=== PATIENT | male | born 1980 | race African-American/Black ===

== ENCOUNTER 2017-10-07 10:28 | Inpatient (IN) | payer SELFPAY ==
[2017-10-07] VITALS (11 sets, daily range): BP systolic 100–164; BP diastolic 57–84
[~2017-10-07] VITALS: Ht 160 cm; Wt 61.2 kg
[2017-10-07] MEDS ORDERED: IV NORMAL SALINE 1000ML BAG 1,000 ML IV ONE (11:45)
[2017-10-07] MEDS ORDERED: KETOROLAC 30 MG/ML INJ. IV ONE (11:45)
[2017-10-07] MEDS ORDERED: diphenhydrAMINE 50 MG/ML VIAL IVP ONE (11:45)
[2017-10-07] MEDS ORDERED: IV NORMAL SALINE 1000ML BAG 1,000 ML IV SCH (12:07)
--- NOTE | 2017-10-07 12:08 | RAD ---
Indication: Headache for 6 days. Axial imaging through the brain was performed without contrast. No prior studies are available for comparison. There is a large subdural hematoma identified along the left frontal parietal convexity. The overall density of the subdural hematoma appears to be slightly less than typically seen during hyperacute phase and may be acute/subacute. This measures up to a thickness of 2.3 cm. This does exert significant mass effect with shift of the midline left to right of approximately 14 mm. This exerts mass effect on the left lateral ventricle. There is diffuse sulcal effacement on the left. Cisterns are patent. No intraparenchymal hemorrhage is seen. No definite fracture is identified. Impression: Large left cerebral convexity acute/subacute subdural hematoma with [id number] midline shift, as described. Results were called to the emergency department prior to this dictation. PQRS Compliance Statement: One or more of the following individualized dose reduction techniques were utilized for this examination: 1. Automated exposure control 2. Adjustment of the mA and/or kV according to patient size 3. Use of iterative reconstruction technique
[2017-10-07] MEDS ORDERED: MORPHINE SULFATE 2 MG/ML DISP.SYRIN. IV PRN (12:15)
[2017-10-07] MEDS ORDERED: ONDANSETRON PF 4 MG/2 ML VIAL. IV PRN (12:15)
[2017-10-07 12:28] LABS: BASO # 0.1 x10^3/uL (0.0-0.2); BASO % 1 % (0-3); EOS % 2 % (0-3); HEMATOCRIT 45.6 % (39.0-53.0); HEMOGLOBIN 15.5 g/dL (13.0-17.5); LYMPH % 23 % (24-48); MEAN CORPUSCULAR HEMOGLOBIN 32 pg (25-35); MEAN CORPUSCULAR HGB CONC 34 g/dL (31-37); MEAN CORPUSCULAR VOLUME 93 fL (79-100); MONO % 7 % (0-9); NEUT % 68 % (31-73); PLATELET COUNT 258 x10^3/uL (140-400); RED BLOOD COUNT 4.91 x10^6/uL (4.30-5.70); RED CELL DISTRIBUTION WIDTH 12.8 % (11.5-14.5); WHITE BLOOD COUNT 8.9 x10^3/uL (4.0-11.0)
[2017-10-07] MEDS ORDERED: THROMBIN TOPICAL 20,000 UNIT SPRAY.SYRN KIT TP ONE (12:30)
[2017-10-07] MEDS ORDERED: BUPIVAC MPF-EPI 0.5%-1:200000 30 ML VIAL. ONE (12:30)
[2017-10-07] MEDS ORDERED: BACITRACIN 50,000 UNIT in IV NORMAL SALINE 1000ML BAG 1,000 ML IRR ONE (12:30)
[2017-10-07] MEDS ORDERED: SURGICEL HEMOSTAT 4X8 EACH. ONE (12:30)
[2017-10-07] MEDS ORDERED: GELATIN SPONGE SIZE 100. ONE (12:30)
[2017-10-07 12:38] LABS: CALCIUM 8.7 mg/dL (8.5-10.1); CREATININE 1.1 mg/dL (0.7-1.3); GFR 91.1; POTASSIUM 4.4 mmol/L (3.5-5.1)
[2017-10-07 12:43] LABS: ALBUMIN 3.8 g/dL (3.4-5.0); TOTAL BILIRUBIN 0.3 mg/dL (0.2-1.0); TOTAL PROTEIN 7.7 g/dL (6.4-8.2)
[2017-10-07 12:45] LABS: PROTHROMBIN TIME PATIENT 12.7 SEC (11.7-14.0)
[2017-10-07] MEDS ORDERED: LIDOCAINE 2% PF Vial for OR 5 ML VIAL. ONE (12:59)
[2017-10-07] MEDS ORDERED: PROPOFOL 20 ML IV ONE (12:59)
[2017-10-07] MEDS ORDERED: REMIFENTANIL 2 MG VIAL. IV ONE (12:59)
[2017-10-07] MEDS ORDERED: ONDANSETRON PF 4 MG/2 ML VIAL. ONE (12:59)
[2017-10-07] MEDS ORDERED: MIDAZOLAM HCL/PF 2 MG/2 ML VIAL. ONE (12:59)
[2017-10-07] MEDS ORDERED: DEXAMETHASONE SOD PHOS 20 MG/5 ML VIAL. ONE (12:59)
[2017-10-07] MEDS ORDERED: MINERAL OIL/PETROLATUM,WHITE OPHTH OINT 3.5GM TUBE. ONE (12:59)
[2017-10-07] MEDS ORDERED: PROPOFOL 50 ML IV ONE (12:59)
[2017-10-07] MEDS ORDERED: ROCURONIUM 50 MG/5 ML VIAL. ONE (13:30)
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
[2017-10-07] MEDS ORDERED: GLYCOPYRROLATE 1 MG/5 ML VIAL. ONE (14:07)
[2017-10-07] MEDS ORDERED: NEOSTIGMINE METHYLSULFATE 5 MG/5 ML SYRINGE. ONE (14:38)
[2017-10-07] MEDS ORDERED: SEVOFLURANE 61 TO 120 MINUTES. IH ONE (14:38)
[2017-10-07] MEDS ORDERED: POTASSIUM CL 20MEQ D5-0.45NACL 1,000 ML IV SCH (14:58)
[2017-10-07] MEDS ORDERED: diphenhydrAMINE HCL 25 MG CAPSULE PO PRN (15:00)
[2017-10-07] MEDS ORDERED: MAG HYDROX/ALUMINUM HYD/SIMETH 30 ML ORAL.SUSP PO PRN (15:00)
[2017-10-07] MEDS ORDERED: CALCIUM CARBONATE 500 MG TAB.CHEW PO PRN (15:00)
[2017-10-07] MEDS ORDERED: HYDROcodone/APAP 5/325MG 1 TAB TABLET PO PRN ×2 (15:00)
[2017-10-07] MEDS ORDERED: DEXTROSE 50% 25 GM / 50ML DISP.SYRIN. IV PRN (15:00)
[2017-10-07] MEDS ORDERED: diphenhydrAMINE 50 MG/ML VIAL IV PRN (15:00)
[2017-10-07] MEDS ORDERED: MAGNESIUM HYDROXIDE 2,400 MG/30 ML ORAL.SUSP. PO PRN (15:00)
[2017-10-07] MEDS ORDERED: 0.9 % SODIUM CHLORIDE 10 ML DISP.SYRIN. IV PRN (15:00)
--- NOTE | 2017-10-07 15:48 | PHYS DOC ---
Past Medical History Past Medical History: No Pertinent History Past Surgical History: No Surgical History Alcohol Use: Heavy Additional Information: AT LEAST 6 BEERS A DAY Drug Use: None Adult General Chief Complaint Chief Complaint: HEADACHE HPI HPI Patient is a 37 year old male who presents with a headache 4-5 days that is persisting. The patient denies any history of migraines, cluster headaches or sinus tenderness. He states that the headache is around his temples stretching across his forehead. He has never had a headache this one. States that he did have some nausea this morning but denies fevers, neck pain or diarrhea. Review of Systems Review of Systems Constitutional: Denies fever or chills [] Eyes: Denies change in visual acuity, redness, or eye pain [] HENT: Denies nasal congestion or sore throat [] Respiratory: Denies cough or shortness of breath [] Cardiovascular: No additional information not addressed in HPI [] GI: See history of present illness Musculoskeletal: Denies back pain or joint pain [] Integument: Denies rash or skin lesions [] Neurologic: He history of present illness Endocrine: Denies polyuria or polydipsia [] All other systems were reviewed and found to be within normal limits, except as documented in this note. Current Medications Current Medications Current Medications Medications (Trade) Dose Ordered Sig/Devorah Start Time Stop Time Status Last Admin Dose Admin Diphenhydramine HCl (Benadryl) 50 mg 1X ONCE 10/07/17 11:45 10/07/17 12:02 DC Ketorolac Tromethamine (Toradol) 30 mg 1X ONCE 10/07/17 11:45 10/07/17 12:02 DC Sodium Chloride 1,000 ml @ 1,000 mls/hr 1X ONCE 10/07/17 11:45 10/07/17 12:44 DC 10/07/17 12:32 1,000 MLS/HR Physical Exam Physical Exam Constitutional: Well developed, well nourished, no acute distress, non-toxic appearance. [] HENT: Normocephalic, atraumatic, bilateral external ears normal, oropharynx is erythematous, no oral exudates, nose normal. [] Eyes: PERRLA, EOMI, conjunctiva normal, no discharge. [] Neck: Normal range of motion, no tenderness, supple, no stridor. [] Cardiovascular:Heart rate regular rhythm, no murmur [] Lungs & Thorax: Bilateral breath sounds clear to auscultation [] Abdomen: Bowel sounds normal, soft, no tenderness, no masses, no pulsatile masses. [] Skin: Warm, dry, no erythema, no rash. [] Back: No tenderness, no CVA tenderness. [] Extremities: No tenderness, no cyanosis, no clubbing, ROM intact, no edema. [] Neurologic: Alert and oriented X 3, normal motor function, normal sensory function, no focal deficits noted, cranial nerves II through XII are grossly intact. [] Psychologic: Affect normal, judgement normal, mood normal. [] Current Patient Data Vital Signs Vital Signs Date Time Temp Pulse Resp B/P (MAP) Pulse Ox O2 Delivery O2 Flow Rate FiO2 10/07/17 12:00 56 18 98 10/07/17 10:42 98.4 134/91 (105) Room Air 98.4 EKG EKG [] Radiology/Procedures Radiology/Procedures PATIENT: SEVERIANO VAUGHN ACCOUNT: [id number] : 1980 LOCATION: ER AGE: 37 SEX: M EXAM STATUS: REG ER ORD. PHYSICIAN: FRANCIS GARCIA APRN REASON: headache x 5 days PROCEDURE: CT HEAD WO CONTRAST Indication: Headache for 6 days. Axial imaging through the brain was performed without contrast. No prior studies are available for comparison. There is a large subdural hematoma identified along the left frontal parietal convexity. The overall density of the subdural hematoma appears to be slightly less than typically seen during hyperacute phase and may be acute/subacute. This measures up to a thickness of 2.3 cm. This does exert significant mass effect with shift of the midline left to right of approximately 14 mm. This exerts mass effect on the left lateral ventricle. There is diffuse sulcal effacement on the left. Cisterns are patent. No intraparenchymal hemorrhage is seen. No definite fracture is identified. Impression: Large left cerebral convexity acute/subacute subdural hematoma with [id number] midline shift, as described. Results were called to the emergency department prior to this dictation. PQRS Compliance Statement: One or more of the following individualized dose reduction techniques were utilized for this examination: 1. Automated exposure control 2. Adjustment of the mA and/or kV according to patient size 3. Use of iterative reconstruction technique DICTATED and SIGNED BY: TAMIA BLACKBURN MD DATE: 10/07/17 6614 CC: FRANCIS GARCIA APRN; WENDY DIAZ MD; NO PCP ~ Course & Med Decision Making Course & Med Decision Making Pertinent Labs and Imaging studies reviewed. (See chart for details) []1. Subdermal hematoma with midline shift Dr. Samuel was consulted in the care of this patient for surgical management of this large subdural hematoma. Dr. Pride will be the admitting provider. Dr. Diaz assisted in the evaluation and treatment of this patient in the emergency department. The patient was directly taken to surgery from the emergency department today. Dragon Disclaimer Dragon Disclaimer This electronic medical record was generated, in whole or in part, using a voice recognition dictation system. Departure Departure Referrals: NO PCP (PCP) FRANCIS GARCIA APRN Oct 07, 2017 15:48
[2017-10-07] MEDS: DOCUSATE SODIUM 100 MG CAPSULE. PO SCH (21:59)
[2017-10-07] MEDS: ceFAZolin SODIUM IV Push 1 GM VIAL. IVP SCH (21:59)
[2017-10-07] MEDS ORDERED: ceFAZolin SODIUM 1 GM in IV DEXTROSE 5% 50 ML IV SCH (22:00)
[2017-10-08] VITALS (16 sets, daily range): BP systolic 95–132; BP diastolic 50–85
[2017-10-08] MEDS: ceFAZolin SODIUM IV Push 1 GM VIAL. IVP SCH ×2 (05:58→14:00)
[2017-10-08 06:44] LABS: BASO % 0 % (0-3); EOS % 0 % (0-3); HEMOGLOBIN 14.6 g/dL (13.0-17.5); LYMPH # 1.7 x10^3/uL (1.0-4.8); LYMPH % 11 % (24-48); MEAN CORPUSCULAR HEMOGLOBIN 31 pg (25-35); MEAN CORPUSCULAR HGB CONC 34 g/dL (31-37); MEAN CORPUSCULAR VOLUME 92 fL (79-100); MONO % 6 % (0-9); NEUT % 82 % (31-73); PLATELET COUNT 280 x10^3/uL (140-400); RED BLOOD COUNT 4.67 x10^6/uL (4.30-5.70); RED CELL DISTRIBUTION WIDTH 12.9 % (11.5-14.5); WHITE BLOOD COUNT 14.7 x10^3/uL (4.0-11.0)
[2017-10-08 06:47] LABS: ALBUMIN 3.5 g/dL (3.4-5.0); CALCIUM 8.7 mg/dL (8.5-10.1); CREATININE 1.3 mg/dL (0.7-1.3); GFR 75.2; POTASSIUM 4.1 mmol/L (3.5-5.1); TOTAL BILIRUBIN 0.5 mg/dL (0.2-1.0); TOTAL PROTEIN 6.9 g/dL (6.4-8.2)
[2017-10-08] MEDS: DOCUSATE SODIUM 100 MG CAPSULE. PO SCH ×2 (09:00→20:33)
--- NOTE | 2017-10-08 12:31 | PDOC ---
PROGRESS NOTES Chief Complaint Chief Complaint large subdural hematoma, s/p possible head trauma now s/p evacuation surgery. History of Present Illness History of Present Illness feels well, has to lie flat, drain removed this AM neurosurg following, transfer to the floor today Vitals Vitals Vital Signs Date Time Temp Pulse Resp B/P (MAP) Pulse Ox O2 Delivery O2 Flow Rate FiO2 10/08/17 11:00 65 101/76 (84) 97 Room Air 10/08/17 09:00 98.5 98.5 10/08/17 06:00 20 10/08/17 04:00 10.0 Physical Exam General: Alert, Oriented X3, Cooperative, No acute distress Heart: Regular rate, Normal S2, No murmurs Lungs: Wheezing Skin: No rashes Labs LABS Laboratory Tests Test 10/08/17 05:00 White Blood Count 14.7 x10^3/uL (4.0-11.0) Red Blood Count 4.67 x10^6/uL (4.30-5.70) Hemoglobin 14.6 g/dL (13.0-17.5) Hematocrit 43.0 % (39.0-53.0) Mean Corpuscular Volume 92 fL (79-100) Mean Corpuscular Hemoglobin 31 pg (25-35) Mean Corpuscular Hemoglobin Concent 34 g/dL (31-37) Red Cell Distribution Width 12.9 % (11.5-14.5) Platelet Count 280 x10^3/uL (140-400) Neutrophils (%) (Auto) 82 % (31-73) Lymphocytes (%) (Auto) 11 % (24-48) Monocytes (%) (Auto) 6 % (0-9) Eosinophils (%) (Auto) 0 % (0-3) Basophils (%) (Auto) 0 % (0-3) Neutrophils # (Auto) 12.1 x10^3uL (1.8-7.7) Lymphocytes # (Auto) 1.7 x10^3/uL (1.0-4.8) Monocytes # (Auto) 0.9 x10^3/uL (0.0-1.1) Eosinophils # (Auto) 0.0 x10^3/uL (0.0-0.7) Basophils # (Auto) 0.0 x10^3/uL (0.0-0.2) Sodium Level 141 mmol/L (136-145) Potassium Level 4.1 mmol/L (3.5-5.1) Chloride Level 103 mmol/L (98-107) Carbon Dioxide Level 29 mmol/L (21-32) Anion Gap 9 (6-14) Blood Urea Nitrogen 12 mg/dL (8-26) Creatinine 1.3 mg/dL (0.7-1.3) Estimated GFR (Cockcroft-Gault) 75.2 BUN/Creatinine Ratio 9 (6-20) Glucose Level 112 mg/dL (70-99) Calcium Level 8.7 mg/dL (8.5-10.1) Total Bilirubin 0.5 mg/dL (0.2-1.0) Aspartate Amino Transf (AST/SGOT) 17 U/L (15-37) Alanine Aminotransferase (ALT/SGPT) 22 U/L (16-63) Alkaline Phosphatase 51 U/L (46-116) Total Protein 6.9 g/dL (6.4-8.2) Albumin 3.5 g/dL (3.4-5.0) Albumin/Globulin Ratio 1.0 (1.0-1.7) Review of Systems Review of Systems no n.v.d' Assessment and Plan Assessmemt and Plan Problems Medical Problems: (1) Subdural hematoma Status: Acute Problems: Comment Review of Relevant I have reviewed the following items eliseo (where applicable) has been applied. Labs Laboratory Tests Test 10/07/17 12:10 10/07/17 12:15 10/08/17 05:00 White Blood Count 8.9 x10^3/uL (4.0-11.0) 14.7 x10^3/uL (4.0-11.0) Red Blood Count 4.91 x10^6/uL (4.30-5.70) 4.67 x10^6/uL (4.30-5.70) Hemoglobin 15.5 g/dL (13.0-17.5) 14.6 g/dL (13.0-17.5) Hematocrit 45.6 % (39.0-53.0) 43.0 % (39.0-53.0) Mean Corpuscular Volume 93 fL (79-100) 92 fL (79-100) Mean Corpuscular Hemoglobin 32 pg (25-35) 31 pg (25-35) Mean Corpuscular Hemoglobin Concent 34 g/dL (31-37) 34 g/dL (31-37) Red Cell Distribution Width 12.8 % (11.5-14.5) 12.9 % (11.5-14.5) Platelet Count 258 x10^3/uL (140-400) 280 x10^3/uL (140-400) Neutrophils (%) (Auto) 68 % (31-73) 82 % (31-73) Lymphocytes (%) (Auto) 23 % (24-48) 11 % (24-48) Monocytes (%) (Auto) 7 % (0-9) 6 % (0-9) Eosinophils (%) (Auto) 2 % (0-3) 0 % (0-3) Basophils (%) (Auto) 1 % (0-3) 0 % (0-3) Neutrophils # (Auto) 6.0 x10^3uL (1.8-7.7) 12.1 x10^3uL (1.8-7.7) Lymphocytes # (Auto) 2.0 x10^3/uL (1.0-4.8) 1.7 x10^3/uL (1.0-4.8) Monocytes # (Auto) 0.6 x10^3/uL (0.0-1.1) 0.9 x10^3/uL (0.0-1.1) Eosinophils # (Auto) 0.2 x10^3/uL (0.0-0.7) 0.0 x10^3/uL (0.0-0.7) Basophils # (Auto) 0.1 x10^3/uL (0.0-0.2) 0.0 x10^3/uL (0.0-0.2) Sodium Level 141 mmol/L (136-145) 141 mmol/L (136-145) Potassium Level 4.4 mmol/L (3.5-5.1) 4.1 mmol/L (3.5-5.1) Chloride Level 104 mmol/L (98-107) 103 mmol/L (98-107) Carbon Dioxide Level 31 mmol/L (21-32) 29 mmol/L (21-32) Anion Gap 6 (6-14) 9 (6-14) Blood Urea Nitrogen 11 mg/dL (8-26) 12 mg/dL (8-26) Creatinine 1.1 mg/dL (0.7-1.3) 1.3 mg/dL (0.7-1.3) Estimated GFR (Cockcroft-Gault) 91.1 75.2 BUN/Creatinine Ratio 10 (6-20) 9 (6-20) Glucose Level 95 mg/dL (70-99) 112 mg/dL (70-99) Calcium Level 8.7 mg/dL (8.5-10.1) 8.7 mg/dL (8.5-10.1) Total Bilirubin 0.3 mg/dL (0.2-1.0) 0.5 mg/dL (0.2-1.0) Aspartate Amino Transf (AST/SGOT) 17 U/L (15-37) 17 U/L (15-37) Alanine Aminotransferase (ALT/SGPT) 25 U/L (16-63) 22 U/L (16-63) Alkaline Phosphatase 59 U/L (46-116) 51 U/L (46-116) Total Protein 7.7 g/dL (6.4-8.2) 6.9 g/dL (6.4-8.2) Albumin 3.8 g/dL (3.4-5.0) 3.5 g/dL (3.4-5.0) Albumin/Globulin Ratio 1.0 (1.0-1.7) 1.0 (1.0-1.7) Prothrombin Time 12.7 SEC (11.7-14.0) Prothromb Time International Ratio 1.0 (0.8-1.1) Activated Partial Thromboplast Time 23 SEC (24-38) Laboratory Tests Test 10/08/17 05:00 White Blood Count 14.7 x10^3/uL (4.0-11.0) Red Blood Count 4.67 x10^6/uL (4.30-5.70) Hemoglobin 14.6 g/dL (13.0-17.5) Hematocrit 43.0 % (39.0-53.0) Mean Corpuscular Volume 92 fL (79-100) Mean Corpuscular Hemoglobin 31 pg (25-35) Mean Corpuscular Hemoglobin Concent 34 g/dL (31-37) Red Cell Distribution Width 12.9 % (11.5-14.5) Platelet Count 280 x10^3/uL (140-400) Neutrophils (%) (Auto) 82 % (31-73) Lymphocytes (%) (Auto) 11 % (24-48) Monocytes (%) (Auto) 6 % (0-9) Eosinophils (%) (Auto) 0 % (0-3) Basophils (%) (Auto) 0 % (0-3) Neutrophils # (Auto) 12.1 x10^3uL (1.8-7.7) Lymphocytes # (Auto) 1.7 x10^3/uL (1.0-4.8) Monocytes # (Auto) 0.9 x10^3/uL (0.0-1.1) Eosinophils # (Auto) 0.0 x10^3/uL (0.0-0.7) Basophils # (Auto) 0.0 x10^3/uL (0.0-0.2) Sodium Level 141 mmol/L (136-145) Potassium Level 4.1 mmol/L (3.5-5.1) Chloride Level 103 mmol/L (98-107) Carbon Dioxide Level 29 mmol/L (21-32) Anion Gap 9 (6-14) Blood Urea Nitrogen 12 mg/dL (8-26) Creatinine 1.3 mg/dL (0.7-1.3) Estimated GFR (Cockcroft-Gault) 75.2 BUN/Creatinine Ratio 9 (6-20) Glucose Level 112 mg/dL (70-99) Calcium Level 8.7 mg/dL (8.5-10.1) Total Bilirubin 0.5 mg/dL (0.2-1.0) Aspartate Amino Transf (AST/SGOT) 17 U/L (15-37) Alanine Aminotransferase (ALT/SGPT) 22 U/L (16-63) Alkaline Phosphatase 51 U/L (46-116) Total Protein 6.9 g/dL (6.4-8.2) Albumin 3.5 g/dL (3.4-5.0) Albumin/Globulin Ratio 1.0 (1.0-1.7) Medications Current Medications Sodium Chloride 1,000 ml @ 1,000 mls/hr 1X ONCE IV Last administered on 10/07 12:32; Start 10/07/17 at 11:45; Stop 10/07/17 at 12:44; Status DC Ketorolac Tromethamine (Toradol) 30 mg 1X ONCE IV ; Start 10/07/17 at 11:45; Stop 10/07/17 at 12:02; Status DC Diphenhydramine HCl (Benadryl) 50 mg 1X ONCE IVP ; Start 10/07/17 at 11:45; Stop 10/07/17 at 12:02; Status DC Ondansetron HCl (Zofran) 4 mg PRN Q8HRS PRN IV NAUSEA/VOMITING; Start at 12:15; Stop 10/08/17 at 12:14; Status DC Morphine Sulfate 2 mg PRN Q2HR PRN IV PAIN; Start 10/07/17 at 12:15; Stop at 12:14; Status DC Sodium Chloride 1,000 ml @ 100 mls/hr Q10H IV Last administered on 10/07/17 12:07; Start 10/07/17 at 12:07; Stop 10/07/17 at 20:06; Status DC Bacitracin 67635 unit/Sodium Chloride 1,000 ml @ 1,000 mls/hr 1X PERIOP ONCE IRR Last administered on 10/07/17 13:55; Start 10/07/17 at 12:30; Stop at 13:29; Status DC Gelatin (Gelfoam Size 100) 1 each STK-MED ONCE .ROUTE Last administered on 13:54; Start 10/07/17 at 12:30; Stop 10/07/17 at 12:31; Status DC Bupivacaine HCl/ Epinephrine Bitart (Sensorcain-Mpf Epi 0.5%-1:[id number]) 30 ml STK -MED ONCE .ROUTE ; Start 10/07/17 at 12:30; Stop 10/07/17 at 12:31; Status DC Cellulose 1 each STK-MED ONCE .ROUTE ; Start 10/07/17 at 12:30; Stop 10/07/17 at 12:31; Status DC Thrombin 20,000 unit STK-MED ONCE TP Last administered on 10/07/17 13:54; Start 10/07/17 at 12:30; Stop 10/07/17 at 12:31; Status DC Dexamethasone Sodium Phosphate (Decadron) 20 mg STK-MED ONCE .ROUTE ; Start at 12:59; Stop 10/07/17 at 13:00; Status DC Lidocaine HCl (Lidocaine Pf 2% Vial) 5 ml STK-MED ONCE .ROUTE ; Start 10/07/17 at 12:59; Stop 10/07/17 at 13:00; Status DC Ondansetron HCl (Zofran) 4 mg STK-MED ONCE .ROUTE ; Start 10/07/17 at 12:59; Stop 10/07/17 at 13:00; Status DC Propofol 20 ml @ As Directed STK-MED ONCE IV ; Start 10/07/17 at 12:59; Stop 10/07/17 at 13:00; Status DC Propofol 50 ml @ As Directed STK-MED ONCE IV ; Start 10/07/17 at 12:59; Stop 10/07/17 at 13:00; Status DC Midazolam HCl (Versed) 2 mg STK-MED ONCE .ROUTE ; Start 10/07/17 at 12:59; Stop 10/07/17 at 13:00; Status DC Remifentanil HCl (Ultiva) 2 mg STK-MED ONCE IV ; Start 10/07/17 at 12:59; Stop 10/07/17 at 13:00; Status DC Multi-Ingred Cream/Lotion/Oil/ Oint (Artificial Tears Eye Ointment) 7 donna STK- MED ONCE .ROUTE ; Start 10/07/17 at 12:59; Stop 10/07/17 at 13:00; Status DC Cefazolin Sodium 0 ml @ As Directed STK-MED ONCE IV ; Start 10/07/17 at 13:19; Stop 10/07/17 at 13:20; Status DC Cefazolin Sodium/ Dextrose 50 ml @ 100 mls/hr 1X PREOP PRN IV PRIOR TO PROCEDURE Last administered on 10/07/17t 13:58; Start 10/07/17 at 13:20; Stop 10/08/17 at 13:19 Rocuronium Rarden (Zemuron) 50 mg STK-MED ONCE .ROUTE ; Start 10/07/17 at 13: 30; Stop 10/07/17 at 13:31; Status DC Glycopyrrolate (Robinul) 1 mg STK-MED ONCE .ROUTE ; Start 10/07/17 at 14:07; Stop 10/07/17 at 14:08; Status DC Sevoflurane (Ultane) 60 ml STK-MED ONCE IH ; Start 10/07/17 at 14:38; Stop at 14:39; Status DC Neostigmine Methylsulfate 5 mg STK-MED ONCE .ROUTE ; Start 10/07/17 at 14:38; Stop 10/07/17 at 14:39; Status DC Al Hydroxide/Mg Hydroxide (Mylanta Plus Xs) 30 ml PRN Q3HRS PRN PO HEARTBURN / GAS; Start 10/07/17 at 15:00 Calcium Carbonate/ Glycine (Tums) 500 mg PRN Q3HRS PRN PO INDIGESTION; Start 10/07/17 at 15:00 Diphenhydramine HCl (Benadryl) 25 mg PRN Q6HRS PRN PO ITCHING; Start 10/07/17 at 15:00 Diphenhydramine HCl (Benadryl) 25 mg PRN Q6HRS PRN IV ITCHING; Start 10/07/17 at 15:00 Sodium Chloride (Normal Saline Flush) 3 ml QSHIFT PRN IV AFTER MEDS AND BLOOD DRAWS; Start 10/07/17 at 15:00 Potassium Chloride/Dextrose/ Sod Cl 1,000 ml @ 75 mls/hr [id number] IV ; Start at 14:58; Stop 10/07/17 at 18:37; Status DC Dextrose (Dextrose 50%-Water Syringe) 12.5 gm PRN Q15MIN PRN IV SEE COMMENTS; Start 10/07/17 at 15:00 Acetaminophen/ Hydrocodone Bitart (Lortab 5/325) 1 tab PRN Q4HRS PRN PO MILD PAIN Last administered on 10/07/17t 21:59; Start 10/07/17 at 15:00 Acetaminophen/ Hydrocodone Bitart (Lortab 5/325) 2 tab PRN Q4HRS PRN PO MODERATE PAIN, SEVERE PAIN; Start 10/07/17 at 15:00 Docusate Sodium (Colace) 100 mg BID PO Last administered on 10/07/17t 21:59; Start 10/07/17 at 21:00 Magnesium Hydroxide (Milk Of Magnesia) 2,400 mg PRN Q12HR PRN PO CONSTIPATION; Start 10/07/17 at 15:00 Cefazolin Sodium 1 gm/Dextrose 50 ml @ 100 mls/hr Q8H IV ; Start 10/07/17 at 22:00; Stop 10/07/17 at 22:00; Status DC Cefazolin Sodium (Ancef) 1 gm Q8HRS IVP Last administered on 10/08/17t 05:58; Start 10/07/17 at 22:00; Stop 10/08/17 at 14:01 Active Scripts Active Reported No Known Medications Prior To Admisstion (Info) Each 1 Each Vitals/I & O Vital Sign - Last 24 Hours 10/07/17 10/07/17 10/07/17 10/07/17 12:30 12:46 13:10 15:20 Temp 98 97.8 98.0 97.8 Pulse 63 60 64 56 Resp 18 20 20 18 B/P (MAP) 122/90 118/76 (90) Pulse Ox 100 99 98 100 O2 Delivery Room Air Simple Mask O2 Flow Rate 6.0 10/07/17 10/07/17 10/07/17 10/07/17 15:21 15:36 15:51 16:00 Temp 97.8 97.2 97.8 97.2 Pulse 55 46 48 Resp 22 22 B/P (MAP) 157/84 152/80 141/76 124/68 (86) Pulse Ox 100 100 100 O2 Delivery Simple Mask Simple Mask Room Air O2 Flow Rate 10 10 10/07/17 10/07/17 10/07/17 10/07/17 16:30 16:59 16:59 18:00 Temp 97.8 97.8 97.8 97.8 Pulse 48 48 50 Resp 18 18 18 B/P (MAP) 155/76 (102) 150/76 (100) 121/77 (92) 129/75 (93) Pulse Ox 100 100 99 O2 Delivery Room Air Room Air Room Air 10/07/17 10/07/17 10/07/17 10/07/17 18:00 19:00 20:00 20:10 Pulse 64 62 Resp 18 18 B/P (MAP) 150/80 (103) 156/82 (106) 140/76 (97) Pulse Ox 99 100 O2 Delivery Room Air Room Air Room Air O2 Flow Rate 10.0 10/07/17 10/07/17 10/07/17 10/07/17 20:15 21:00 21:00 21:59 Pulse 50 56 Resp 22 B/P (MAP) 154/78 (103) 133/59 (83) 164/84 (110) Pulse Ox 99 100 O2 Delivery Room Air Room Air O2 Flow Rate 10.0 10/07/17 10/07/17 10/07/17 10/07/17 22:00 22:00 23:09 23:10 Pulse 70 55 Resp 22 20 22 B/P (MAP) 162/78 (106) 100/79 (86) 103/57 (72) Pulse Ox 100 100 97 O2 Delivery Room Air Room Air 10/07/17 10/08/17 10/08/17 10/08/17 23:10 00:01 00:01 00:01 Pulse 63 55 Resp 20 B/P (MAP) 134/67 (89) 103/64 (77) 131/61 (84) Pulse Ox 96 O2 Delivery Room Air Room Air O2 Flow Rate 10.0 10/08/17 10/08/17 10/08/17 10/08/17 01:01 02:03 02:04 03:08 Temp 98.3 98.3 Pulse 61 61 60 Resp 20 20 B/P (MAP) 129/61 (83) 100/50 (67) 95/55 (68) 102/61 (75) Pulse Ox 96 95 O2 Delivery Room Air Room Air 10/08/17 10/08/17 10/08/17 10/08/17 03:10 04:00 04:00 04:00 Pulse 54 Resp 20 B/P (MAP) 97/63 (74) 132/64 (86) 109/64 (79) Pulse Ox 96 O2 Delivery Room Air O2 Flow Rate 10.0 10/08/17 10/08/17 10/08/17 10/08/17 06:00 07:00 08:00 08:00 Temp 98.5 98.5 Pulse 80 57 96 Resp 20 B/P (MAP) 100/67 (78) 100/59 (73) 111/67 (82) Pulse Ox 98 96 97 O2 Delivery Room Air Room Air Room Air Room Air 10/08/17 10/08/1710/08/17 09:00 10:00 11:00 Temp 98.5 98.5 Pulse 71 60 65 B/P (MAP) 105/65 (78) 114/70 (85) 101/76 (84) Pulse Ox 98 100 97 O2 Delivery Room Air Room Air Room Air Intake and Output 10/07/17 10/07/17 10/08/17 15:00 23:00 07:00 Intake Total 50 ml 1620 ml 600 ml Output Total 1015 ml 680 ml Balance 50 ml 605 ml -80 ml GAIL TRACEY MD Oct 08, 2017 12:31
--- NOTE | 2017-10-08 16:39 | PDOC ---
PROGRESS NOTES Subjective Subjective Patient seen at 1130 POD #1 Awake, alert denies headache Objective Objective Vital Signs Date Time Temp Pulse Resp B/P (MAP) Pulse Ox O2 Delivery O2 Flow Rate FiO2 10/08/17 11:00 65 101/76 (84) 97 Room Air 10/08/17 09:00 98.5 98.5 10/08/17 06:00 20 10/08/17 04:00 10.0 Intake and Output 10/08/17 07:00 Intake Total 2270 ml Output Total 1695 ml Balance 575 ml Intake Oral 1220 ml IV Total 1050 ml Output Urine Total 1600 ml Drainage Total 70 ml Estimated Blood Loss 25 ml Physical Exam General: Alert, Oriented X3, Cooperative, No acute distress MUSCULOSKELETAL: Other ([place]) Neuro: Strength at 5/5 X4 ext Skin: Other (Drain removed without diffuculty, dressing intact) Assessment Assessment Problems Medical Problems: (1) Subdural hematoma Status: Acute Plan Plan of Care may transfer to floor CT head in AM Comment Review of Relevant I have reviewed the following items eliseo (where applicable) has been applied. Labs Laboratory Tests Test 10/07/17 12:10 10/07/17 12:15 10/08/17 05:00 White Blood Count 8.9 x10^3/uL (4.0-11.0) 14.7 x10^3/uL (4.0-11.0) Red Blood Count 4.91 x10^6/uL (4.30-5.70) 4.67 x10^6/uL (4.30-5.70) Hemoglobin 15.5 g/dL (13.0-17.5) 14.6 g/dL (13.0-17.5) Hematocrit 45.6 % (39.0-53.0) 43.0 % (39.0-53.0) Mean Corpuscular Volume 93 fL (79-100) 92 fL (79-100) Mean Corpuscular Hemoglobin 32 pg (25-35) 31 pg (25-35) Mean Corpuscular Hemoglobin Concent 34 g/dL (31-37) 34 g/dL (31-37) Red Cell Distribution Width 12.8 % (11.5-14.5) 12.9 % (11.5-14.5) Platelet Count 258 x10^3/uL (140-400) 280 x10^3/uL (140-400) Neutrophils (%) (Auto) 68 % (31-73) 82 % (31-73) Lymphocytes (%) (Auto) 23 % (24-48) 11 % (24-48) Monocytes (%) (Auto) 7 % (0-9) 6 % (0-9) Eosinophils (%) (Auto) 2 % (0-3) 0 % (0-3) Basophils (%) (Auto) 1 % (0-3) 0 % (0-3) Neutrophils # (Auto) 6.0 x10^3uL (1.8-7.7) 12.1 x10^3uL (1.8-7.7) Lymphocytes # (Auto) 2.0 x10^3/uL (1.0-4.8) 1.7 x10^3/uL (1.0-4.8) Monocytes # (Auto) 0.6 x10^3/uL (0.0-1.1) 0.9 x10^3/uL (0.0-1.1) Eosinophils # (Auto) 0.2 x10^3/uL (0.0-0.7) 0.0 x10^3/uL (0.0-0.7) Basophils # (Auto) 0.1 x10^3/uL (0.0-0.2) 0.0 x10^3/uL (0.0-0.2) Sodium Level 141 mmol/L (136-145) 141 mmol/L (136-145) Potassium Level 4.4 mmol/L (3.5-5.1) 4.1 mmol/L (3.5-5.1) Chloride Level 104 mmol/L (98-107) 103 mmol/L (98-107) Carbon Dioxide Level 31 mmol/L (21-32) 29 mmol/L (21-32) Anion Gap 6 (6-14) 9 (6-14) Blood Urea Nitrogen 11 mg/dL (8-26) 12 mg/dL (8-26) Creatinine 1.1 mg/dL (0.7-1.3) 1.3 mg/dL (0.7-1.3) Estimated GFR (Cockcroft-Gault) 91.1 75.2 BUN/Creatinine Ratio 10 (6-20) 9 (6-20) Glucose Level 95 mg/dL (70-99) 112 mg/dL (70-99) Calcium Level 8.7 mg/dL (8.5-10.1) 8.7 mg/dL (8.5-10.1) Total Bilirubin 0.3 mg/dL (0.2-1.0) 0.5 mg/dL (0.2-1.0) Aspartate Amino Transf (AST/SGOT) 17 U/L (15-37) 17 U/L (15-37) Alanine Aminotransferase (ALT/SGPT) 25 U/L (16-63) 22 U/L (16-63) Alkaline Phosphatase 59 U/L (46-116) 51 U/L (46-116) Total Protein 7.7 g/dL (6.4-8.2) 6.9 g/dL (6.4-8.2) Albumin 3.8 g/dL (3.4-5.0) 3.5 g/dL (3.4-5.0) Albumin/Globulin Ratio 1.0 (1.0-1.7) 1.0 (1.0-1.7) Prothrombin Time 12.7 SEC (11.7-14.0) Prothromb Time International Ratio 1.0 (0.8-1.1) Activated Partial Thromboplast Time 23 SEC (24-38) Laboratory Tests Test 10/08/17 05:00 White Blood Count 14.7 x10^3/uL (4.0-11.0) Red Blood Count 4.67 x10^6/uL (4.30-5.70) Hemoglobin 14.6 g/dL (13.0-17.5) Hematocrit 43.0 % (39.0-53.0) Mean Corpuscular Volume 92 fL (79-100) Mean Corpuscular Hemoglobin 31 pg (25-35) Mean Corpuscular Hemoglobin Concent 34 g/dL (31-37) Red Cell Distribution Width 12.9 % (11.5-14.5) Platelet Count 280 x10^3/uL (140-400) Neutrophils (%) (Auto) 82 % (31-73) Lymphocytes (%) (Auto) 11 % (24-48) Monocytes (%) (Auto) 6 % (0-9) Eosinophils (%) (Auto) 0 % (0-3) Basophils (%) (Auto) 0 % (0-3) Neutrophils # (Auto) 12.1 x10^3uL (1.8-7.7) Lymphocytes # (Auto) 1.7 x10^3/uL (1.0-4.8) Monocytes # (Auto) 0.9 x10^3/uL (0.0-1.1) Eosinophils # (Auto) 0.0 x10^3/uL (0.0-0.7) Basophils # (Auto) 0.0 x10^3/uL (0.0-0.2) Sodium Level 141 mmol/L (136-145) Potassium Level 4.1 mmol/L (3.5-5.1) Chloride Level 103 mmol/L (98-107) Carbon Dioxide Level 29 mmol/L (21-32) Anion Gap 9 (6-14) Blood Urea Nitrogen 12 mg/dL (8-26) Creatinine 1.3 mg/dL (0.7-1.3) Estimated GFR (Cockcroft-Gault) 75.2 BUN/Creatinine Ratio 9 (6-20) Glucose Level 112 mg/dL (70-99) Calcium Level 8.7 mg/dL (8.5-10.1) Total Bilirubin 0.5 mg/dL (0.2-1.0) Aspartate Amino Transf (AST/SGOT) 17 U/L (15-37) Alanine Aminotransferase (ALT/SGPT) 22 U/L (16-63) Alkaline Phosphatase 51 U/L (46-116) Total Protein 6.9 g/dL (6.4-8.2) Albumin 3.5 g/dL (3.4-5.0) Albumin/Globulin Ratio 1.0 (1.0-1.7) Medications Current Medications Sodium Chloride 1,000 ml @ 1,000 mls/hr 1X ONCE IV Last administered on 10/07t 12:32; Start 10/07/17 at 11:45; Stop 10/07/17 at 12:44; Status DC Ketorolac Tromethamine (Toradol) 30 mg 1X ONCE IV ; Start 10/07/17 at 11:45; Stop 10/07/17 at 12:02; Status DC Diphenhydramine HCl (Benadryl) 50 mg 1X ONCE IVP ; Start 10/07/17 at 11:45; Stop 10/07/17 at 12:02; Status DC Ondansetron HCl (Zofran) 4 mg PRN Q8HRS PRN IV NAUSEA/VOMITING; Start at 12:15; Stop 10/08/17 at 12:14; Status DC Morphine Sulfate 2 mg PRN Q2HR PRN IV PAIN; Start 10/07/17 at 12:15; Stop at 12:14; Status DC Sodium Chloride 1,000 ml @ 100 mls/hr Q10H IV Last administered on 10/07/17 12:07; Start 10/07/17 at 12:07; Stop 10/07/17 at 20:06; Status DC Bacitracin 67841 unit/Sodium Chloride 1,000 ml @ 1,000 mls/hr 1X PERIOP ONCE IRR Last administered on 10/07/17 13:55; Start 10/07/17 at 12:30; Stop at 13:29; Status DC Gelatin (Gelfoam Size 100) 1 each STK-MED ONCE .ROUTE Last administered on 13:54; Start 10/07/17 at 12:30; Stop 10/07/17 at 12:31; Status DC Bupivacaine HCl/ Epinephrine Bitart (Sensorcain-Mpf Epi 0.5%-1:005773) 30 ml STK -MED ONCE .ROUTE ; Start 10/07/17 at 12:30; Stop 10/07/17 at 12:31; Status DC Cellulose 1 each STK-MED ONCE .ROUTE ; Start 10/07/17 at 12:30; Stop 10/07/17 at 12:31; Status DC Thrombin 20,000 unit STK-MED ONCE TP Last administered on 10/07/17 13:54; Start 10/07/17 at 12:30; Stop 10/07/17 at 12:31; Status DC Dexamethasone Sodium Phosphate (Decadron) 20 mg STK-MED ONCE .ROUTE ; Start at 12:59; Stop 10/07/17 at 13:00; Status DC Lidocaine HCl (Lidocaine Pf 2% Vial) 5 ml STK-MED ONCE .ROUTE ; Start 10/07/17 at 12:59; Stop 10/07/17 at 13:00; Status DC Ondansetron HCl (Zofran) 4 mg STK-MED ONCE .ROUTE ; Start 10/07/17 at 12:59; Stop 10/07/17 at 13:00; Status DC Propofol 20 ml @ As Directed STK-MED ONCE IV ; Start 10/07/17 at 12:59; Stop 10/07/17 at 13:00; Status DC Propofol 50 ml @ As Directed STK-MED ONCE IV ; Start 10/07/17 at 12:59; Stop 10/07/17 at 13:00; Status DC Midazolam HCl (Versed) 2 mg STK-MED ONCE .ROUTE ; Start 10/07/17 at 12:59; Stop 10/07/17 at 13:00; Status DC Remifentanil HCl (Ultiva) 2 mg STK-MED ONCE IV ; Start 10/07/17 at 12:59; Stop 10/07/17 at 13:00; Status DC Multi-Ingred Cream/Lotion/Oil/ Oint (Artificial Tears Eye Ointment) 7 donna STK- MED ONCE .ROUTE ; Start 10/07/17 at 12:59; Stop 10/07/17 at 13:00; Status DC Cefazolin Sodium 0 ml @ As Directed STK-MED ONCE IV ; Start 10/07/17 at 13:19; Stop 10/07/17 at 13:20; Status DC Cefazolin Sodium/ Dextrose 50 ml @ 100 mls/hr 1X PREOP PRN IV PRIOR TO PROCEDURE Last administered on 10/07/17t 13:58; Start 10/07/17 at 13:20; Stop 10/08/17 at 13:19; Status DC Rocuronium [place] (Zemuron) 50 mg STK-MED ONCE .ROUTE ; Start 10/07/17 at 13: 30; Stop 10/07/17 at 13:31; Status DC Glycopyrrolate (Robinul) 1 mg STK-MED ONCE .ROUTE ; Start 10/07/17 at 14:07; Stop 10/07/17 at 14:08; Status DC Sevoflurane (Ultane) 60 ml STK-MED ONCE IH ; Start 10/07/17 at 14:38; Stop at 14:39; Status DC Neostigmine Methylsulfate 5 mg STK-MED ONCE .ROUTE ; Start 10/07/17 at 14:38; Stop 10/07/17 at 14:39; Status DC Al Hydroxide/Mg Hydroxide (Mylanta Plus Xs) 30 ml PRN Q3HRS PRN PO HEARTBURN / GAS; Start 10/07/17 at 15:00 Calcium Carbonate/ Glycine (Tums) 500 mg PRN Q3HRS PRN PO INDIGESTION; Start 10/07/17 at 15:00 Diphenhydramine HCl (Benadryl) 25 mg PRN Q6HRS PRN PO ITCHING; Start 10/07/17 at 15:00 Diphenhydramine HCl (Benadryl) 25 mg PRN Q6HRS PRN IV ITCHING; Start 10/07/17 at 15:00 Sodium Chloride (Normal Saline Flush) 3 ml QSHIFT PRN IV AFTER MEDS AND BLOOD DRAWS; Start 10/07/17 at 15:00 Potassium Chloride/Dextrose/ Sod Cl 1,000 ml @ 75 mls/hr [id number] IV ; Start at 14:58; Stop 10/07/17 at 18:37; Status DC Dextrose (Dextrose 50%-Water Syringe) 12.5 gm PRN Q15MIN PRN IV SEE COMMENTS; Start 10/07/17 at 15:00 Acetaminophen/ Hydrocodone Bitart (Lortab 5/325) 1 tab PRN Q4HRS PRN PO MILD PAIN Last administered on 10/07/17t 21:59; Start 10/07/17 at 15:00 Acetaminophen/ Hydrocodone Bitart (Lortab 5/325) 2 tab PRN Q4HRS PRN PO MODERATE PAIN, SEVERE PAIN; Start 10/07/17 at 15:00 Docusate Sodium (Colace) 100 mg BID PO Last administered on 10/07/17t 21:59; Start 10/07/17 at 21:00 Magnesium Hydroxide (Milk Of Magnesia) 2,400 mg PRN Q12HR PRN PO CONSTIPATION; Start 10/07/17 at 15:00 Cefazolin Sodium 1 gm/Dextrose 50 ml @ 100 mls/hr Q8H IV ; Start 10/07/17 at 22:00; Stop 10/07/17 at 22:00; Status DC Cefazolin Sodium (Ancef) 1 gm Q8HRS IVP Last administered on 10/08/17t 05:58; Start 10/07/17 at 22:00; Stop 10/08/17 at 14:01; Status DC Active Scripts Active Reported No Known Medications Prior To Admisstion (Info) Each 1 Each Vitals/I & O Vital Sign - Last 24 Hours 10/07/17 10/07/17 10/07/17 10/07/17 16:59 16:59 18:00 18:00 Temp 97.8 97.8 Pulse 48 50 Resp 18 18 B/P (MAP) 150/76 (100) 121/77 (92) 129/75 (93) 150/80 (103) Pulse Ox 100 99 O2 Delivery Room Air Room Air 10/07/17 10/07/17 10/07/17 10/07/17 19:00 20:00 20:10 20:15 Pulse 64 62 50 Resp 18 18 B/P (MAP) 156/82 (106) 140/76 (97) 154/78 (103) Pulse Ox 99 100 O2 Delivery Room Air Room Air Room Air O2 Flow Rate 10.0 10/07/17 10/07/17 10/07/17 10/07/17 21:00 21:00 21:59 22:00 Pulse 56 Resp 22 B/P (MAP) 133/59 (83) 164/84 (110) 162/78 (106) Pulse Ox 99 100 O2 Delivery Room Air Room Air O2 Flow Rate 10.0 10/07/17 10/07/17 10/07/17 10/07/17 22:00 23:09 23:10 23:10 Pulse 70 55 Resp 22 20 22 B/P (MAP) 100/79 (86) 103/57 (72) 134/67 (89) Pulse Ox 100 100 97 O2 Delivery Room Air Room Air 10/08/17 10/08/17 10/08/17 10/08/17 00:01 00:01 00:01 01:01 Pulse 63 55 Resp 20 B/P (MAP) 103/64 (77) 131/61 (84) 129/61 (83) Pulse Ox 96 O2 Delivery Room Air Room Air O2 Flow Rate 10.0 10/08/17 10/08/17 10/08/17 10/08/17 02:03 02:04 03:08 03:10 Temp 98.3 98.3 Pulse 61 61 60 Resp 20 20 B/P (MAP) 100/50 (67) 95/55 (68) 102/61 (75) 97/63 (74) Pulse Ox 96 95 O2 Delivery Room Air Room Air 10/08/17 10/08/17 10/08/17 10/08/17 04:00 04:00 04:00 06:00 Temp 98.5 98.5 Pulse 54 80 Resp 20 20 B/P (MAP) 132/64 (86) 109/64 (79) 100/67 (78) Pulse Ox 96 98 O2 Delivery Room Air Room Air O2 Flow Rate 10.0 10/08/17 10/08/17 10/08/17 10/08/17 07:00 08:00 08:00 09:00 Temp 98.5 98.5 Pulse 57 96 71 B/P (MAP) 100/59 (73) 111/67 (82) 105/65 (78) Pulse Ox 96 97 98 O2 Delivery Room Air Room Air Room Air Room Air 10/08/17 10/08/17 10:00 11:00 Pulse 60 65 B/P (MAP) 114/70 (85) 101/76 (84) Pulse Ox 100 97 O2 Delivery Room Air Room Air Intake and Output 10/07/17 10/07/17 10/08/17 15:00 23:00 07:00 Intake Total 50 ml 1620 ml 600 ml Output Total 1015 ml 680 ml Balance 50 ml 605 ml -80 ml DANIELLA STALLWORTH MD Oct 08, 2017 16:39
[2017-10-08] MEDS ORDERED: ceFAZolin SODIUM IV Push 1 GM VIAL. IVP ONE (21:00)
[2017-10-09 03:25] VITALS: BP 100/43
[2017-10-09 07:00] VITALS: BP 113/66
[2017-10-09] MEDS: DOCUSATE SODIUM 100 MG CAPSULE. PO SCH (07:58)
[2017-10-09 11:00] VITALS: BP 120/79
--- NOTE | 2017-10-09 12:28 | PDOC ---
PROGRESS NOTES Chief Complaint Chief Complaint large subdural hematoma, s/p head trauma s/p emergent evacuation History of Present Illness History of Present Illness Patient seen and examined. No acute events overnight. Denies chest pain, LANDAVERDE, shortness of breath, dizziness. Would like to be discharged soon. Vitals Vitals Vital Signs Date Time Temp Pulse Resp B/P (MAP) Pulse Ox O2 Delivery O2 Flow Rate FiO2 10/09/17 11:00 98.1 63 20 120/79 (93) 99 Room Air 98.1 10/08/17 20:00 10.0 Physical Exam General: Alert, Oriented X3, Cooperative, No acute distress Heart: Regular rate, Normal S2, No murmurs Lungs: Wheezing Abdomen: Soft Extremities: No clubbing, No cyanosis, No edema Skin: No rashes, No breakdown, No significant lesion, Other (Drain removed without diffuculty, dressing intact) Review of Systems Review of Systems Denies LANDAVERDE. dizziness, chest pain, or shortness of breath. Assessment and Plan Assessmemt and Plan Problems Medical Problems: (1) Subdural hematoma Status: Acute large subdural hematoma, s/p head trauma s/p emergent evacuation PLAN: Repeat CT head ordered this AM, followup on results PRN Narcotics Bowel regimen PT/OT Neurosurgery following d/c today if cleared with neurosurgery following CT Problems: Comment Review of Relevant I have reviewed the following items eliseo (where applicable) has been applied. Labs Laboratory Tests Test 10/07/17 17:00 10/08/17 05:00 Nasal Screen MRSA (PCR) Negative (Negative) White Blood Count 14.7 x10^3/uL (4.0-11.0) Red Blood Count 4.67 x10^6/uL (4.30-5.70) Hemoglobin 14.6 g/dL (13.0-17.5) Hematocrit 43.0 % (39.0-53.0) Mean Corpuscular Volume 92 fL (79-100) Mean Corpuscular Hemoglobin 31 pg (25-35) Mean Corpuscular Hemoglobin Concent 34 g/dL (31-37) Red Cell Distribution Width 12.9 % (11.5-14.5) Platelet Count 280 x10^3/uL (140-400) Neutrophils (%) (Auto) 82 % (31-73) Lymphocytes (%) (Auto) 11 % (24-48) Monocytes (%) (Auto) 6 % (0-9) Eosinophils (%) (Auto) 0 % (0-3) Basophils (%) (Auto) 0 % (0-3) Neutrophils # (Auto) 12.1 x10^3uL (1.8-7.7) Lymphocytes # (Auto) 1.7 x10^3/uL (1.0-4.8) Monocytes # (Auto) 0.9 x10^3/uL (0.0-1.1) Eosinophils # (Auto) 0.0 x10^3/uL (0.0-0.7) Basophils # (Auto) 0.0 x10^3/uL (0.0-0.2) Sodium Level 141 mmol/L (136-145) Potassium Level 4.1 mmol/L (3.5-5.1) Chloride Level 103 mmol/L (98-107) Carbon Dioxide Level 29 mmol/L (21-32) Anion Gap 9 (6-14) Blood Urea Nitrogen 12 mg/dL (8-26) Creatinine 1.3 mg/dL (0.7-1.3) Estimated GFR (Cockcroft-Gault) 75.2 BUN/Creatinine Ratio 9 (6-20) Glucose Level 112 mg/dL (70-99) Calcium Level 8.7 mg/dL (8.5-10.1) Total Bilirubin 0.5 mg/dL (0.2-1.0) Aspartate Amino Transf (AST/SGOT) 17 U/L (15-37) Alanine Aminotransferase (ALT/SGPT) 22 U/L (16-63) Alkaline Phosphatase 51 U/L (46-116) Total Protein 6.9 g/dL (6.4-8.2) Albumin 3.5 g/dL (3.4-5.0) Albumin/Globulin Ratio 1.0 (1.0-1.7) Medications Current Medications Sodium Chloride 1,000 ml @ 1,000 mls/hr 1X ONCE IV Last administered on 10/07t 12:32; Start 10/07/17 at 11:45; Stop 10/07/17 at 12:44; Status DC Ketorolac Tromethamine (Toradol) 30 mg 1X ONCE IV ; Start 10/07/17 at 11:45; Stop 10/07/17 at 12:02; Status DC Diphenhydramine HCl (Benadryl) 50 mg 1X ONCE IVP ; Start 10/07/17 at 11:45; Stop 10/07/17 at 12:02; Status DC Ondansetron HCl (Zofran) 4 mg PRN Q8HRS PRN IV NAUSEA/VOMITING; Start at 12:15; Stop 10/08/17 at 12:14; Status DC Morphine Sulfate 2 mg PRN Q2HR PRN IV PAIN; Start 10/07/17 at 12:15; Stop at 12:14; Status DC Sodium Chloride 1,000 ml @ 100 mls/hr Q10H IV Last administered on 10/07/17 12:07; Start 10/07/17 at 12:07; Stop 10/07/17 at 20:06; Status DC Bacitracin 15589 unit/Sodium Chloride 1,000 ml @ 1,000 mls/hr 1X PERIOP ONCE IRR Last administered on 10/07/17 13:55; Start 10/07/17 at 12:30; Stop at 13:29; Status DC Gelatin (Gelfoam Size 100) 1 each STK-MED ONCE .ROUTE Last administered on 13:54; Start 10/07/17 at 12:30; Stop 10/07/17 at 12:31; Status DC Bupivacaine HCl/ Epinephrine Bitart (Sensorcain-Mpf Epi 0.5%-1:691354) 30 ml STK -MED ONCE .ROUTE ; Start 10/07/17 at 12:30; Stop 10/07/17 at 12:31; Status DC Cellulose 1 each STK-MED ONCE .ROUTE ; Start 10/07/17 at 12:30; Stop 10/07/17 at 12:31; Status DC Thrombin 20,000 unit STK-MED ONCE TP Last administered on 10/07/17 13:54; Start 10/07/17 at 12:30; Stop 10/07/17 at 12:31; Status DC Dexamethasone Sodium Phosphate (Decadron) 20 mg STK-MED ONCE .ROUTE ; Start at 12:59; Stop 10/07/17 at 13:00; Status DC Lidocaine HCl (Lidocaine Pf 2% Vial) 5 ml STK-MED ONCE .ROUTE ; Start 10/07/17 at 12:59; Stop 10/07/17 at 13:00; Status DC Ondansetron HCl (Zofran) 4 mg STK-MED ONCE .ROUTE ; Start 10/07/17 at 12:59; Stop 10/07/17 at 13:00; Status DC Propofol 20 ml @ As Directed STK-MED ONCE IV ; Start 10/07/17 at 12:59; Stop 10/07/17 at 13:00; Status DC Propofol 50 ml @ As Directed STK-MED ONCE IV ; Start 10/07/17 at 12:59; Stop 10/07/17 at 13:00; Status DC Midazolam HCl (Versed) 2 mg STK-MED ONCE .ROUTE ; Start 10/07/17 at 12:59; Stop 10/07/17 at 13:00; Status DC Remifentanil HCl (Ultiva) 2 mg STK-MED ONCE IV ; Start 10/07/17 at 12:59; Stop 10/07/17 at 13:00; Status DC Multi-Ingred Cream/Lotion/Oil/ Oint (Artificial Tears Eye Ointment) 7 donna STK- MED ONCE .ROUTE ; Start 10/07/17 at 12:59; Stop 10/07/17 at 13:00; Status DC Cefazolin Sodium 0 ml @ As Directed STK-MED ONCE IV ; Start 10/07/17 at 13:19; Stop 10/07/17 at 13:20; Status DC Cefazolin Sodium/ Dextrose 50 ml @ 100 mls/hr 1X PREOP PRN IV PRIOR TO PROCEDURE Last administered on 10/07/17t 13:58; Start 10/07/17 at 13:20; Stop 10/08/17 at 13:19; Status DC Rocuronium [place] (Zemuron) 50 mg STK-MED ONCE .ROUTE ; Start 10/07/17 at 13: 30; Stop 10/07/17 at 13:31; Status DC Glycopyrrolate (Robinul) 1 mg STK-MED ONCE .ROUTE ; Start 10/07/17 at 14:07; Stop 10/07/17 at 14:08; Status DC Sevoflurane (Ultane) 60 ml STK-MED ONCE IH ; Start 10/07/17 at 14:38; Stop at 14:39; Status DC Neostigmine Methylsulfate 5 mg STK-MED ONCE .ROUTE ; Start 10/07/17 at 14:38; Stop 10/07/17 at 14:39; Status DC Al Hydroxide/Mg Hydroxide (Mylanta Plus Xs) 30 ml PRN Q3HRS PRN PO HEARTBURN / GAS; Start 10/07/17 at 15:00 Calcium Carbonate/ Glycine (Tums) 500 mg PRN Q3HRS PRN PO INDIGESTION; Start 10/07/17 at 15:00 Diphenhydramine HCl (Benadryl) 25 mg PRN Q6HRS PRN PO ITCHING; Start 10/07/17 at 15:00 Diphenhydramine HCl (Benadryl) 25 mg PRN Q6HRS PRN IV ITCHING; Start 10/07/17 at 15:00 Sodium Chloride (Normal Saline Flush) 3 ml QSHIFT PRN IV AFTER MEDS AND BLOOD DRAWS; Start 10/07/17 at 15:00 Potassium Chloride/Dextrose/ Sod Cl 1,000 ml @ 75 mls/hr [id number] IV ; Start at 14:58; Stop 10/07/17 at 18:37; Status DC Dextrose (Dextrose 50%-Water Syringe) 12.5 gm PRN Q15MIN PRN IV SEE COMMENTS; Start 10/07/17 at 15:00 Acetaminophen/ Hydrocodone Bitart (Lortab 5/325) 1 tab PRN Q4HRS PRN PO MILD PAIN Last administered on 10/07/17 21:59; Start 10/07/17 at 15:00 Acetaminophen/ Hydrocodone Bitart (Lortab 5/325) 2 tab PRN Q4HRS PRN PO MODERATE PAIN, SEVERE PAIN; Start 10/07/17 at 15:00 Docusate Sodium (Colace) 100 mg BID PO Last administered on 10/07/17t 21:59; Start 10/07/17 at 21:00 Magnesium Hydroxide (Milk Of Magnesia) 2,400 mg PRN Q12HR PRN PO CONSTIPATION; Start 10/07/17 at 15:00 Cefazolin Sodium 1 gm/Dextrose 50 ml @ 100 mls/hr Q8H IV ; Start 10/07/17 at 22:00; Stop 10/07/17 at 22:00; Status DC Cefazolin Sodium (Ancef) 1 gm Q8HRS IVP Last administered on 10/08/17 05:58; Start 10/07/17 at 22:00; Stop 10/08/17 at 14:01; Status DC Cefazolin Sodium (Ancef) 1 gm 1X ONCE IVP Last administered on 10/08/17 20: 54; Start 10/08/17 at 21:00; Stop 10/08/17 at 21:01; Status DC Active Scripts Active Reported No Known Medications Prior To Admisstion (Info) Each 1 Each Vitals/I & O Vital Sign - Last 24 Hours 10/08/17 10/08/17 10/08/17 10/08/17 19:00 20:00 20:06 23:06 Temp 98.2 98.0 97.7 98.2 98.0 97.7 Pulse 71 65 64 Resp 20 18 B/P (MAP) 118/62 (80) 115/69 (84) 120/85 (97) Pulse Ox 96 97 96 O2 Delivery Room Air Room Air Room Air Room Air O2 Flow Rate 10.0 10/09/17 10/09/17 10/09/17 10/09/17 03:25 07:00 08:20 11:00 Temp 98.3 97.8 98.1 98.3 97.8 98.1 Pulse 63 71 63 Resp 20 20 20 B/P (MAP) 100/43 (62) 113/66 (82) 120/79 (93) Pulse Ox 99 100 99 O2 Delivery Room Air Room Air Room Air Room Air Intake and Output 10/08/17 10/08/17 10/09/17 15:00 23:00 07:00 Intake Total 360 ml 690 ml 360 ml Output Total 440 ml Balance -80 ml 690 ml 360 ml ELADIONIAL K III DO Oct 09, 2017 12:28
--- NOTE | 2017-10-09 13:38 | PDOC ---
PROGRESS NOTES Subjective Subjective POD #2 awake, denies headache wants to go home Objective Objective Vital Signs Date Time Temp Pulse Resp B/P (MAP) Pulse Ox O2 Delivery O2 Flow Rate FiO2 10/09/17 11:00 98.1 63 20 120/79 (93) 99 Room Air 98.1 10/08/17 20:00 10.0 Intake and Output 10/09/17 07:00 Intake Total 1410 ml Output Total 440 ml Balance 970 ml Intake Oral 1410 ml Output Urine Total 440 ml # Voids 7 Physical Exam General: Alert, Oriented X3, Cooperative, No acute distress MUSCULOSKELETAL: Other Neuro: Normal speech, Strength at 5/5 X4 ext Assessment Assessment Problems Medical Problems: (1) Subdural hematoma Status: Acute Plan Plan of Care may dc home f.u next week with CT head Comment Review of Relevant I have reviewed the following items eliseo (where applicable) has been applied. Labs Laboratory Tests Test 10/07/17 17:00 10/08/17 05:00 Nasal Screen MRSA (PCR) Negative (Negative) White Blood Count 14.7 x10^3/uL (4.0-11.0) Red Blood Count 4.67 x10^6/uL (4.30-5.70) Hemoglobin 14.6 g/dL (13.0-17.5) Hematocrit 43.0 % (39.0-53.0) Mean Corpuscular Volume 92 fL (79-100) Mean Corpuscular Hemoglobin 31 pg (25-35) Mean Corpuscular Hemoglobin Concent 34 g/dL (31-37) Red Cell Distribution Width 12.9 % (11.5-14.5) Platelet Count 280 x10^3/uL (140-400) Neutrophils (%) (Auto) 82 % (31-73) Lymphocytes (%) (Auto) 11 % (24-48) Monocytes (%) (Auto) 6 % (0-9) Eosinophils (%) (Auto) 0 % (0-3) Basophils (%) (Auto) 0 % (0-3) Neutrophils # (Auto) 12.1 x10^3uL (1.8-7.7) Lymphocytes # (Auto) 1.7 x10^3/uL (1.0-4.8) Monocytes # (Auto) 0.9 x10^3/uL (0.0-1.1) Eosinophils # (Auto) 0.0 x10^3/uL (0.0-0.7) Basophils # (Auto) 0.0 x10^3/uL (0.0-0.2) Sodium Level 141 mmol/L (136-145) Potassium Level 4.1 mmol/L (3.5-5.1) Chloride Level 103 mmol/L (98-107) Carbon Dioxide Level 29 mmol/L (21-32) Anion Gap 9 (6-14) Blood Urea Nitrogen 12 mg/dL (8-26) Creatinine 1.3 mg/dL (0.7-1.3) Estimated GFR (Cockcroft-Gault) 75.2 BUN/Creatinine Ratio 9 (6-20) Glucose Level 112 mg/dL (70-99) Calcium Level 8.7 mg/dL (8.5-10.1) Total Bilirubin 0.5 mg/dL (0.2-1.0) Aspartate Amino Transf (AST/SGOT) 17 U/L (15-37) Alanine Aminotransferase (ALT/SGPT) 22 U/L (16-63) Alkaline Phosphatase 51 U/L (46-116) Total Protein 6.9 g/dL (6.4-8.2) Albumin 3.5 g/dL (3.4-5.0) Albumin/Globulin Ratio 1.0 (1.0-1.7) Medications Current Medications Sodium Chloride 1,000 ml @ 1,000 mls/hr 1X ONCE IV Last administered on 10/07t 12:32; Start 10/07/17 at 11:45; Stop 10/07/17 at 12:44; Status DC Ketorolac Tromethamine (Toradol) 30 mg 1X ONCE IV ; Start 10/07/17 at 11:45; Stop 10/07/17 at 12:02; Status DC Diphenhydramine HCl (Benadryl) 50 mg 1X ONCE IVP ; Start 10/07/17 at 11:45; Stop 10/07/17 at 12:02; Status DC Ondansetron HCl (Zofran) 4 mg PRN Q8HRS PRN IV NAUSEA/VOMITING; Start at 12:15; Stop 10/08/17 at 12:14; Status DC Morphine Sulfate 2 mg PRN Q2HR PRN IV PAIN; Start 10/07/17 at 12:15; Stop at 12:14; Status DC Sodium Chloride 1,000 ml @ 100 mls/hr Q10H IV Last administered on 10/07/17 12:07; Start 10/07/17 at 12:07; Stop 10/07/17 at 20:06; Status DC Bacitracin 44175 unit/Sodium Chloride 1,000 ml @ 1,000 mls/hr 1X PERIOP ONCE IRR Last administered on 10/07/17 13:55; Start 10/07/17 at 12:30; Stop at 13:29; Status DC Gelatin (Gelfoam Size 100) 1 each STK-MED ONCE .ROUTE Last administered on 13:54; Start 10/07/17 at 12:30; Stop 10/07/17 at 12:31; Status DC Bupivacaine HCl/ Epinephrine Bitart (Sensorcain-Mpf Epi 0.5%-1:119839) 30 ml STK -MED ONCE .ROUTE ; Start 10/07/17 at 12:30; Stop 10/07/17 at 12:31; Status DC Cellulose 1 each STK-MED ONCE .ROUTE ; Start 10/07/17 at 12:30; Stop 10/07/17 at 12:31; Status DC Thrombin 20,000 unit STK-MED ONCE TP Last administered on 10/07/17 13:54; Start 10/07/17 at 12:30; Stop 10/07/17 at 12:31; Status DC Dexamethasone Sodium Phosphate (Decadron) 20 mg STK-MED ONCE .ROUTE ; Start at 12:59; Stop 10/07/17 at 13:00; Status DC Lidocaine HCl (Lidocaine Pf 2% Vial) 5 ml STK-MED ONCE .ROUTE ; Start 10/07/17 at 12:59; Stop 10/07/17 at 13:00; Status DC Ondansetron HCl (Zofran) 4 mg STK-MED ONCE .ROUTE ; Start 10/07/17 at 12:59; Stop 10/07/17 at 13:00; Status DC Propofol 20 ml @ As Directed STK-MED ONCE IV ; Start 10/07/17 at 12:59; Stop 10/07/17 at 13:00; Status DC Propofol 50 ml @ As Directed STK-MED ONCE IV ; Start 10/07/17 at 12:59; Stop 10/07/17 at 13:00; Status DC Midazolam HCl (Versed) 2 mg STK-MED ONCE .ROUTE ; Start 10/07/17 at 12:59; Stop 10/07/17 at 13:00; Status DC Remifentanil HCl (Ultiva) 2 mg STK-MED ONCE IV ; Start 10/07/17 at 12:59; Stop 10/07/17 at 13:00; Status DC Multi-Ingred Cream/Lotion/Oil/ Oint (Artificial Tears Eye Ointment) 7 donna STK- MED ONCE .ROUTE ; Start 10/07/17 at 12:59; Stop 10/07/17 at 13:00; Status DC Cefazolin Sodium 0 ml @ As Directed STK-MED ONCE IV ; Start 10/07/17 at 13:19; Stop 10/07/17 at 13:20; Status DC Cefazolin Sodium/ Dextrose 50 ml @ 100 mls/hr 1X PREOP PRN IV PRIOR TO PROCEDURE Last administered on 10/07/17t 13:58; Start 10/07/17 at 13:20; Stop 10/08/17 at 13:19; Status DC Rocuronium Clay (Zemuron) 50 mg STK-MED ONCE .ROUTE ; Start 10/07/17 at 13: 30; Stop 10/07/17 at 13:31; Status DC Glycopyrrolate (Robinul) 1 mg STK-MED ONCE .ROUTE ; Start 10/07/17 at 14:07; Stop 10/07/17 at 14:08; Status DC Sevoflurane (Ultane) 60 ml STK-MED ONCE IH ; Start 10/07/17 at 14:38; Stop at 14:39; Status DC Neostigmine Methylsulfate 5 mg STK-MED ONCE .ROUTE ; Start 10/07/17 at 14:38; Stop 10/07/17 at 14:39; Status DC Al Hydroxide/Mg Hydroxide (Mylanta Plus Xs) 30 ml PRN Q3HRS PRN PO HEARTBURN / GAS; Start 10/07/17 at 15:00 Calcium Carbonate/ Glycine (Tums) 500 mg PRN Q3HRS PRN PO INDIGESTION; Start 10/07/17 at 15:00 Diphenhydramine HCl (Benadryl) 25 mg PRN Q6HRS PRN PO ITCHING; Start 10/07/17 at 15:00 Diphenhydramine HCl (Benadryl) 25 mg PRN Q6HRS PRN IV ITCHING; Start 10/07/17 at 15:00 Sodium Chloride (Normal Saline Flush) 3 ml QSHIFT PRN IV AFTER MEDS AND BLOOD DRAWS; Start 10/07/17 at 15:00 Potassium Chloride/Dextrose/ Sod Cl 1,000 ml @ 75 mls/hr [id number] IV ; Start at 14:58; Stop 10/07/17 at 18:37; Status DC Dextrose (Dextrose 50%-Water Syringe) 12.5 gm PRN Q15MIN PRN IV SEE COMMENTS; Start 10/07/17 at 15:00 Acetaminophen/ Hydrocodone Bitart (Lortab 5/325) 1 tab PRN Q4HRS PRN PO MILD PAIN Last administered on 10/07/17 21:59; Start 10/07/17 at 15:00 Acetaminophen/ Hydrocodone Bitart (Lortab 5/325) 2 tab PRN Q4HRS PRN PO MODERATE PAIN, SEVERE PAIN; Start 10/07/17 at 15:00 Docusate Sodium (Colace) 100 mg BID PO Last administered on 10/07/17 21:59; Start 10/07/17 at 21:00 Magnesium Hydroxide (Milk Of Magnesia) 2,400 mg PRN Q12HR PRN PO CONSTIPATION; Start 10/07/17 at 15:00 Cefazolin Sodium 1 gm/Dextrose 50 ml @ 100 mls/hr Q8H IV ; Start 10/07/17 at 22:00; Stop 10/07/17 at 22:00; Status DC Cefazolin Sodium (Ancef) 1 gm Q8HRS IVP Last administered on 10/08/17 05:58; Start 10/07/17 at 22:00; Stop 10/08/17 at 14:01; Status DC Cefazolin Sodium (Ancef) 1 gm 1X ONCE IVP Last administered on 10/08/17 20: 54; Start 10/08/17 at 21:00; Stop 10/08/17 at 21:01; Status DC Active Scripts Active Reported No Known Medications Prior To Admisstion (Info) Each 1 Each Vitals/I & O Vital Sign - Last 24 Hours 10/08/17 10/08/17 10/08/17 10/08/17 19:00 20:00 20:06 23:06 Temp 98.2 98.0 97.7 98.2 98.0 97.7 Pulse 71 65 64 Resp 20 18 B/P (MAP) 118/62 (80) 115/69 (84) 120/85 (97) Pulse Ox 96 97 96 O2 Delivery Room Air Room Air Room Air Room Air O2 Flow Rate 10.0 10/09/17 10/09/17 10/09/17 10/09/17 03:25 07:00 08:20 11:00 Temp 98.3 97.8 98.1 98.3 97.8 98.1 Pulse 63 71 63 Resp 20 20 20 B/P (MAP) 100/43 (62) 113/66 (82) 120/79 (93) Pulse Ox 99 100 99 O2 Delivery Room Air Room Air Room Air Room Air Intake and Output 10/08/17 10/08/17 10/09/17 15:00 23:00 07:00 Intake Total 360 ml 690 ml 360 ml Output Total 440 ml Balance -80 ml 690 ml 360 ml DANIELLA STALLWORTH MD Oct 09, 2017 13:38
--- NOTE | 2017-10-09 14:07 | RAD ---
PQRS Compliance Statement: One or more of the following individualized dose reduction techniques were utilized for this examination: 1. Automated exposure control 2. Adjustment of the mA and/or kV according to patient size 3. Use of iterative reconstruction technique CT HEAD WITHOUT CONTRAST History: post op repeat . Comparison: CT head without contrast, 2 days ago. Procedure: Axial images are obtained of the head from the skull base through the vertex without IV contrast. Findings: There has been interval left frontoparietal craniotomy and left subdural evacuation. Left extra-axial fluid is significantly smaller maximum diameter is seen inferiorly measuring up to 13 mm. There are heterogeneous mildly hyperdense blood products inferiorly. Extra-axial fluid more superiorly extending to the convexity is near CSF density. Small amount of pneumocephalus is seen. Mass effect on the left lateral ventricle is improved. Left 2 right midline shift now measures 8 mm, previously 14 mm. No loss of mclaughlin-white matter differentiation. Basilar cisterns are patent. Globes and orbits intact. Left mastoid air cells are opacified. IMPRESSION: Post subdural evacuation left convexity extra-axial fluid is significantly less. There are heterogeneous mildly hyperdense blood products inferiorly. Mass effect is improved and left to right midline shift has decreased.
--- NOTE | 2017-10-11 18:58 | OP ---
DATE OF SURGERY: 10/07/2017 PREOPERATIVE DIAGNOSES: Large frontoparietal occipital left subacute subdural hematoma with significant left to right shift. POSTOPERATIVE DIAGNOSIS: Large frontoparietal occipital left subacute subdural hematoma with significant left to right shift. OPERATION PERFORMED: Left posterior frontal/anterior parietal craniotomy with evacuation of subacute subdural and placement of subdural drain. OPERATIVE INDICATIONS: The patient is a very pleasant 37-year-old who presented in the Emergency Room with problems relating to headache. On the imaging studies, he was found to have a very large subacute subdural hematoma associated with a marked left to right shift. I recommended urgent/emergent surgery and outlined the surgery and the risks to him. He understood and he wished to go ahead. DESCRIPTION OF PROCEDURE: Following general endotracheal anesthesia, the patient was positioned supine with a roll beneath his left shoulder. His head was turned to 90 degrees to the right. His scalp was clipped, prepped and draped in the standard fashion. I made an incision in the mid posterior frontal/anterior parietal region over the lateral convexity after infiltration of skin with 0.25% Marcaine plus epinephrine. I did use skin clips and then opened the periosteum and fascia and created an exposure. I then brought in the high speed air drill with a conical juana, placed 2 juana holes and then using the osteotome, created a craniotomy and the bone was lifted away. I opened the dura. There was significant pressure of the liquified/gelatinous blood. I did open the dura in a cruciate fashion and I irrigated copiously and as I worked, I could visualize the brain moving laterally significantly. I placed a drain in the subdural space and I brought this out through a separate stab incision and tacked the dura with 4-0 Nurolon. I laid Duragen over the dura and then replaced the bone and secured this with microplates leaving a small exit site for the drain. At this point, then I closed the temporalis fascia and then subcutaneous tissue with interrupted absorbable sutures. The skin was closed with skin darien. The operation went very well and the patient was awakened uneventfully, taken to the Intensive Care Unit in excellent condition. I was quite pleased with the surgery. I did submit the bloody drainage for pathologic evaluation. DANIELLA STALLWORTH MD DR: SUDHIR/hillary JOB#: [id number] / [id number]
== END 2017-10-09 13:30 | disposition home or self-care (01) | DRG 27 ==
LOC: ER 10:28 → ED HOLD 12:06 → 1 WEST ICU 15:20 → 6 SOUTH 10-08 13:41
PROVIDERS: ADMIT Internal Medicine; ATTEND Internal Medicine
PROC: 00C40ZZ Extirpation of Matter from Intracranial Subdural Space, Open Approach (ICD-10-PCS; principal; 2017-10-07 13:00)
DX: S06.5X9A Traumatic subdural hemorrhage with loss of consciousness of unspecified duration, initial encounter (principal); Z83.3 Family history of diabetes mellitus; Z87.828 Personal history of other (healed) physical injury and trauma
CPT/HCPCS: 36415; 70450; 80053; 85025; 85610; 85730; 86850; 86900; 86901; 87641; 96360; J0690; J1100; J2250; J2405; J2704; J2710; J3490; J7030; 99285-25; J2001

== ENCOUNTER → 2017-10-19 | Outpatient (CLI) | payer SELFPAY | END | disposition home or self-care (01) | LOC: CT 13:50 | DX: S09.90XA Unspecified injury of head, initial encounter (principal); X58.XXXA Exposure to other specified factors, initial encounter; Y93.89 Activity, other specified; Y92.89 Other specified places as the place of occurrence of the external cause; Y99.8 Other external cause status | CPT/HCPCS: 70450 ==

== ENCOUNTER 2021-02-14 11:56 | Emergency (ER) | payer BC ==
[~2021-02-14] VITALS: Ht 160 cm; Wt 57.0 kg
--- NOTE | 2021-02-14 12:49 | RAD ---
Exam Date: 02/14/2021 12:15 PM XR KNEE 3 VIEWS_RT Indication: Reason: jumped into a man hole, knee pain / Spl. Instructions: / History: FINDINGS/ IMPRESSION: No acute fracture or dislocation. Alignment and joint spaces are maintained. The soft tissues are w ithin normal limits. Electronically signed by: Keanu Flowers MD (02/14/2021 12:47 PM) [id number]
--- NOTE | 2021-02-14 12:49 | RAD ---
EXAM: 2 views calcaneus DATE: 02/14/2021 12:15 PM INDICATION: Reason: jumped into a deep man hole / Spl. Instructions: / History: . COMPARISON: No Prior FINDINGS/ IMPRESSION: No definite acute fracture or dislocation. Posterior subtalar joint is preserved. Soft tissue swellin g about the calcaneus. If there is persistent clinical concern for fracture, follow-up radiographs in 10-14 days is recommen ded. Electronically signed by: Delfin Gonzalez MD (02/14/2021 12:47 PM) PACO
--- NOTE | 2021-02-14 12:49 | RAD ---
Exam Date: 02/14/2021 12:15 PM XR BILATERAL HIP (WITH OR WITHOUT PELVIS) 2 VIEWS_RIGHT Indication: Reason: right hip pain, jumped into a deep man hole / Spl. Instructions: / History: FINDINGS/ IMPRESSION: No acute fracture or dislocation. Alignment and joint spaces are maintained. The soft tissues are w ithin normal limits. Electronically signed by: Keanu Flowers MD (02/14/2021 12:46 PM) [id number]
--- NOTE | 2021-02-14 12:50 | RAD ---
EXAM: 3 views of the right ankle DATE: 02/14/2021 12:15 PM INDICATION: Reason: jumped into a deep man hole / Spl. Instructions: / History: COMPARISON: No Prior FINDINGS: No acute fracture or dislocation. Ankle mortise is congruent. Talar dome is intact. Joint spaces are preserved without significant degenerative/proliferative change. Mild soft tissue swelling about the ankle IMPRESSION: No acute fracture or dislocation. If there is persistent clinical concern for fracture, follow-up rad iographs in 10-14 days is recommended. Mild soft tissue swelling about the ankle particularly anteriorly. Electronically signed by: Delfin Gonzalez MD (02/14/2021 12:47 PM) PACO
--- NOTE | 2021-02-14 12:52 | RAD ---
Exam Date: 02/14/2021 12:15 PM XR LUMBAR SPINE 2-3V Indication: Reason: jumped into a deep man hole, back pain / Spl. Instructions: / History: FINDINGS/ IMPRESSION: Anatomic alignment is maintained without spondylolisthesis. The vertebral body heights are maintaine d without evidence of compression fracture. Disc spaces are maintained. The SI joints appear normal. The visualized soft tissues are within normal limits. Electronically signed by: Keanu Flowers MD (02/14/2021 12:49 PM) [id number]
--- NOTE | 2021-02-14 13:51 | RAD ---
EXAM: CT right ankle without contrast DATE: 02/14/2021 1:05 PM COMPARISON: No prior INDICATION: CT RIGHT ANKLE, CALCANEOUS, FOOT, JUMPED INTO A DEEP MAN HOLE, PAIN, trauma, injury TECHNIQUE: Non-union protocol completed through the affected site without IV contrast. 2-D reformatte d sagittal and coronal images were created at the CT console workstation. PQRS compliance statement - One or more of the following individualized dose reduction techniques wer e utilized for this study: 1. Automated exposure control 2. Adjustment of the mA and/or kV according to patient size 3. Use of iterative reconstruction technique FINDINGS: No evidence for acute fracture or dislocation of the right ankle or calcaneus. No ankle joint effusio n. Joint spaces are preserved. Talar dome is intact. On this nonweightbearing view, ankle mortise is congruent. Mild soft tissue swelling at the plantar aspect of the calcaneus. Achilles tendon silhouet te is grossly normal in morphology and contour. IMPRESSION: 1. No acute fracture or dislocation. If there is persistent clinical concern for fracture or interna l derangement of the right ankle, MRI may provide additional details. Electronically signed by: Delfin Gonzalez MD (02/14/2021 1:49 PM) PACO
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
[2021-02-14 15:43] VITALS: BP 122/83
== END 2021-02-14 15:40 | disposition home or self-care (01) ==
LOC: ER 11:56
DX: S90.31XA Contusion of right foot, initial encounter (principal); M25.551 Pain in right hip; M25.561 Pain in right knee; M25.571 Pain in right ankle and joints of right foot; F17.200 Nicotine dependence, unspecified, uncomplicated; F10.20 Alcohol dependence, uncomplicated; Y90.9 Presence of alcohol in blood, level not specified; W17.2XXA Fall into hole, initial encounter; Y93.89 Activity, other specified; Y92.89 Other specified places as the place of occurrence of the external cause; Y99.8 Other external cause status
CPT/HCPCS: 72100; 73502; 73562; 73610; 73650; 73700; 99285-25